=== PATIENT | female | born 1940 | race Caucasian/White ===

== ENCOUNTER 2021-03-28 17:46 | Inpatient (IN) | payer MEDICARE, OTHER ==
[~2021-03-28] VITALS: Ht 154.9 cm; Wt 68.0 kg
[~2021-03-28 17:46] MED LIST: ALBUTEROL1.25 MG/3 INH; COMBIVENT0.074 GM/I INH; EFFEXOR XR75 MG PO; HYDROCHLOROTHIA25 MG PO; IMDUR ER TAB 6060 MG PO; JANUVIA100 MG PO; K-DUR TAB 20 M20 MEQ PO; LIPITOR TAB 2020 MG PO; MEDROL DOSEPAK 24 MG PO; MEDROL4 MG PO; NORVASC10 MG PO; OMNICEF 300 MG300 MG PO; PLAVIX 75 MG TA75 MG PO; PREDNISONE20 MG PO; SPIRIVA HANDIH18 MCG INH; SYMBICORT 16010.2 GM INH; SYNTHROID75 MCG PO
[2021-03-28 18:22] LABS: HEMOGLOBIN 11.7 gm/dl (12.3-15.3); RED BLOOD COUNT 4.33 M/UL (4.00-5.10); WHITE BLOOD COUNT 13.8 K/UL (4.5-11.0)
[2021-03-28 18:49] LABS: BUN/CREATININE RATIO 18 (0-10)
--- NOTE | 2021-03-29 05:20 | NUR ---
CALLED TELEMTRY DESK TO OBTAIN PULSE OX FOR PATIENT. WAS INFORMED THAT NO PULSE OX ARE AVAILABLE AT THIS TIME AND THAT PATIENT IS ON WAITING LIST.
[2021-03-29] MEDS ORDERED: ZOFRAN 4 MG TAB4 MG PO (11:48)
[2021-03-29] MEDS ORDERED: PROTONIX 40 MG40 M1 PO (11:48)
[2021-03-29] MEDS ORDERED: NITROSTAT0.4 MG SL (11:50)
[2021-03-29] MEDS ORDERED: MUCINEX600 MG PO (11:50)
[2021-03-29] MEDS ORDERED: IPRAT-ALBUT 0.5-3 ML INH (11:50)
[2021-03-29] MEDS ORDERED: MIRALAX17 GM PO (11:51)
[2021-03-29] MEDS ORDERED: LACTULOSE10 GM/15 M PO (11:51)
[2021-03-29] MEDS ORDERED: TYLENOL EXTRA500 MG PO (11:52)
[2021-03-29] MEDS ORDERED: FLINTSTONES1 EAC1 PO (11:52)
[2021-03-29] MEDS ORDERED: ELDERBERRY PO (11:53)
[2021-03-29] MEDS ORDERED: TOPROL XL25 MG PO (14:30)
[2021-03-29] MEDS ORDERED: KLONOPIN0.5 MG PO (21:43)
[2021-03-30 04:16] LABS: HEMOGLOBIN 11.1 gm/dl (12.3-15.3); RED BLOOD COUNT 4.13 M/UL (4.00-5.10); WHITE BLOOD COUNT 13.7 K/UL (4.5-11.0)
[2021-03-30 05:06] LABS: BUN/CREATININE RATIO 27 (0-10)
[2021-03-30] MEDS ORDERED: MEDROL DOSEPAK 24 MG PO (11:26)
[2021-03-30] MEDS ORDERED: ZITHROMAX1 GM PO (13:11)
== END 2021-03-30 14:57 | disposition home or self-care (01) | DRG 189 ==
LOC: ER1 17:46 → CDU 20:45 → M/S 22:07
PROVIDERS: Emergency Medicine; Physician Assistant; ADMIT Internal Medicine
DX: J96.21 Acute and chronic respiratory failure with hypoxia (principal); J44.1 Chronic obstructive pulmonary disease with (acute) exacerbation; I25.10 Atherosclerotic heart disease of native coronary artery without angina pectoris; I10 Essential (primary) hypertension; Z20.822 Contact with and (suspected) exposure to COVID-19; E78.5 Hyperlipidemia, unspecified; E11.9 Type 2 diabetes mellitus without complications; E03.9 Hypothyroidism, unspecified; Z66 Do not resuscitate; R60.0 Localized edema; Z88.1 Allergy status to other antibiotic agents; Z95.5 Presence of coronary angioplasty implant and graft; Z99.81 Dependence on supplemental oxygen; Z88.8 Allergy status to other drugs, medicaments and biological substances; Z82.49 Family history of ischemic heart disease and other diseases of the circulatory system; Z87.891 Personal history of nicotine dependence; Z79.84 Long term (current) use of oral hypoglycemic drugs; Z79.02 Long term (current) use of antithrombotics/antiplatelets; Z79.899 Other long term (current) drug therapy
CPT/HCPCS: 0240U; 36415; 36600; 71045; 80048; 80053; 81001; 82550; 82553; 82803; 82962; 83874; 83880; 84484; 85025; 93005; 94640; 94664; 94760; 96374; 99285; J1650; J2920; J2930

== ENCOUNTER 2021-07-15 15:07 | Inpatient (IN) | payer MEDICARE, OTHER ==
[~2021-07-15] VITALS: Ht 154.9 cm; Wt 61.9 kg
[~2021-07-15 15:07] MED LIST changes: +ELDERBERRY PO; +FLINTSTONES1 EAC1 PO; +IPRAT-ALBUT 0.5-3 ML INH; -K-DUR TAB 20 M20 MEQ PO; +LACTULOSE10 GM/15 M PO; +MIRALAX17 GM PO; +MUCINEX600 MG PO; +NITROSTAT0.4 MG SL; +PROTONIX 40 MG40 M1 PO; +TOPROL XL25 MG PO; +TYLENOL EXTRA500 MG PO; +ZITHROMAX1 GM PO; +ZOFRAN 4 MG TAB4 MG PO
[2021-07-15 15:46] LABS: HEMOGLOBIN 12.7 gm/dl (12.3-15.3); RED BLOOD COUNT 4.73 M/UL (4.00-5.10); WHITE BLOOD COUNT 22.9 K/UL (4.5-11.0)
[2021-07-15 16:09] LABS: BUN/CREATININE RATIO 25 (0-10)
[2021-07-15] MEDS ORDERED: ASPIRIN EC81 MG PO (19:16)
[2021-07-15] MEDS ORDERED: KLOR-CON M2020 MEQ PO (21:38)
[2021-07-15] MEDS ORDERED: KLONOPIN0.5 MG PO (21:43)
[2021-07-16 02:57] LABS: HEMOGLOBIN 11.2 gm/dl (12.3-15.3); WHITE BLOOD COUNT 17.4 K/UL (4.5-11.0)
[2021-07-16 02:58] LABS: RED BLOOD COUNT 4.24 M/UL (4.00-5.10)
[2021-07-16 03:47] LABS: BUN/CREATININE RATIO 32 (0-10)
--- NOTE | 2021-07-16 09:30 | NUR ---
REPORT CALLED TO CHAYITO JUNG ON MED SURG
[2021-07-16 13:52] LABS: HEMOGLOBIN 11.2 gm/dl (12.3-15.3); RED BLOOD COUNT 4.19 M/UL (4.00-5.10); WHITE BLOOD COUNT 16.3 K/UL (4.5-11.0)
[2021-07-17 07:59] LABS: HEMOGLOBIN 10.5 gm/dl (12.3-15.3); RED BLOOD COUNT 4.1 M/UL (4.00-5.10)
[2021-07-17 08:38] LABS: BUN/CREATININE RATIO 32 (0-10)
== END 2021-07-17 14:19 | disposition home or self-care (01) | DRG 189 ==
LOC: ER1 15:07 → CDU 17:21 → PROG CARE 23:28 → MED SURG 4 07-16 10:32
PROVIDERS: Emergency Medicine; ADMIT Internal Medicine Infectious Disease
DX: J96.21 Acute and chronic respiratory failure with hypoxia (principal); J44.1 Chronic obstructive pulmonary disease with (acute) exacerbation; Z66 Do not resuscitate; Z20.822 Contact with and (suspected) exposure to COVID-19; D72.828 Other elevated white blood cell count; T38.0X5A Adverse effect of glucocorticoids and synthetic analogues, initial encounter; R04.0 Epistaxis; I25.10 Atherosclerotic heart disease of native coronary artery without angina pectoris; E03.9 Hypothyroidism, unspecified; I10 Essential (primary) hypertension; F17.210 Nicotine dependence, cigarettes, uncomplicated; R53.81 Other malaise; J96.22 Acute and chronic respiratory failure with hypercapnia; Z79.01 Long term (current) use of anticoagulants; Z79.899 Other long term (current) drug therapy; Z88.1 Allergy status to other antibiotic agents; Z88.8 Allergy status to other drugs, medicaments and biological substances; Z79.82 Long term (current) use of aspirin
CPT/HCPCS: 36415; 36600; 71045; 80053; 81001; 82550; 82553; 82803; 83605; 83735; 83874; 83880; 84484; 85025; 85610; 85730; 87040; 87086; 93005; 94640; 94664; 94760; 99285; J0696; J1650; J2930; U0002

== ENCOUNTER 2021-10-31 10:42 | Inpatient (IN) | payer MEDICARE, OTHER ==
[~2021-10-31] VITALS: Ht 154.9 cm; Wt 59.0 kg
[~2021-10-31 10:42] MED LIST changes: +ASPIRIN EC81 MG PO; +COMBIVENT RESPIM4 GM INH; -COMBIVENT0.074 GM/I INH; +KLONOPIN0.5 MG PO; +KLOR-CON M2020 MEQ PO
[2021-10-31 11:06] LABS: HEMOGLOBIN 12.9 gm/dl (12.3-15.3); RED BLOOD COUNT 5.13 M/UL (4.00-5.10); WHITE BLOOD COUNT 19.1 K/UL (4.5-11.0)
[2021-10-31 11:32] LABS: BUN/CREATININE RATIO 19 (0-10)
[2021-10-31] MEDS ORDERED: ATORVASTATIN CA20 MG PO (12:31)
[2021-11-01 03:42] LABS: BUN/CREATININE RATIO 26 (0-10)
[2021-11-01 03:43] LABS: HEMOGLOBIN 11.4 gm/dl (12.3-15.3); RED BLOOD COUNT 4.64 M/UL (4.00-5.10); WHITE BLOOD COUNT 8.2 K/UL (4.5-11.0)
[2021-11-02 02:59] LABS: HEMOGLOBIN 11.6 gm/dl (12.3-15.3); RED BLOOD COUNT 4.73 M/UL (4.00-5.10)
[2021-11-02 03:07] LABS: BUN/CREATININE RATIO 33 (0-10)
[2021-11-02 03:15] LABS: WHITE BLOOD COUNT 16.4 K/UL (4.5-11.0)
[2021-11-02] MEDS ORDERED: TOPROL XL25 MG PO (10:07)
[2021-11-02] MEDS ORDERED: DIAMOX 250 MG250 MG PO (10:07)
[2021-11-02] MEDS ORDERED: METFORMIN HCL500 M2 PO (10:09)
== END 2021-11-02 12:00 | disposition home or self-care (01) | DRG 291 ==
LOC: ER1 10:42 → PROG CARE 12:05 → CDU 12:05 → PROG CARE 15:45
PROVIDERS: Emergency Medicine; Internal Medicine Infectious Disease; Physician Assistant; ADMIT Internal Medicine
PROC: 5A09357 Assistance with Respiratory Ventilation, Less than 24 Consecutive Hours, Continuous Positive Airway Pressure (ICD-10-PCS; 2021-10-31)
PROC: B24BZZZ Ultrasonography of Heart with Aorta (ICD-10-PCS; principal; 2021-11-01)
PROC: 5A09357 Assistance with Respiratory Ventilation, Less than 24 Consecutive Hours, Continuous Positive Airway Pressure (ICD-10-PCS; 2021-11-01)
PROC: 5A09357 Assistance with Respiratory Ventilation, Less than 24 Consecutive Hours, Continuous Positive Airway Pressure (ICD-10-PCS; 2021-11-02)
DX: I11.0 Hypertensive heart disease with heart failure (principal); J96.21 Acute and chronic respiratory failure with hypoxia; J96.22 Acute and chronic respiratory failure with hypercapnia; J44.1 Chronic obstructive pulmonary disease with (acute) exacerbation; Z20.822 Contact with and (suspected) exposure to COVID-19; E11.9 Type 2 diabetes mellitus without complications; I25.10 Atherosclerotic heart disease of native coronary artery without angina pectoris; Z66 Do not resuscitate; E78.5 Hyperlipidemia, unspecified; R53.81 Other malaise; I35.0 Nonrheumatic aortic (valve) stenosis; F32.A Depression, unspecified; F41.9 Anxiety disorder, unspecified; E03.9 Hypothyroidism, unspecified; Z74.01 Bed confinement status; Z95.5 Presence of coronary angioplasty implant and graft; Z88.8 Allergy status to other drugs, medicaments and biological substances; Z88.6 Allergy status to analgesic agent; Z87.891 Personal history of nicotine dependence; Z82.49 Family history of ischemic heart disease and other diseases of the circulatory system; Z80.8 Family history of malignant neoplasm of other organs or systems; Z99.81 Dependence on supplemental oxygen; Z79.899 Other long term (current) drug therapy; Z79.4 Long term (current) use of insulin
CPT/HCPCS: ECHO; 0240U; 36415; 36600; 71045; 80048; 80053; 81001; 82550; 82553; 82803; 82962; 83605; 83735; 83880; 84484; 85025; 87040; 87086; 93005; 93306; 94640; 94660; 94664; 94760; 96374; 96375; 99285; J0456; J0696; J1940; J2920; J2930; J7030; J7040